=== PATIENT | female | born 1950 | race Caucasian/White ===

== ENCOUNTER 2017-02-03 08:52 | Day surgery (SDC) | payer MEDICARE ==
[2017-02-02 12:32] VITALS: BMI 33.7
[2017-02-03] MEDS ORDERED: diphenhydrAMINE HCl 25 MG CAP ONE (09:40)
[2017-02-03] MEDS ORDERED: Diazepam 5 MG TAB ONE (09:40)
[2017-02-03] MEDS ORDERED: Heparin 10,000 UNITS/1 ML VIAL ONE (10:27)
[2017-02-03] MEDS ORDERED: Nitroglycerin 100MG/250ML BOT 250 ML ONE (10:27)
== END 2017-02-03 14:12 | disposition home or self-care (01) ==
LOC: CCL 08:52
PROVIDERS: ATTEND Internal Medicine
DX: I25.10 Atherosclerotic heart disease of native coronary artery without angina pectoris (principal); I10 Essential (primary) hypertension; Z79.899 Other long term (current) drug therapy
CPT/HCPCS: 93458; 93798; C1769; J1644

== ENCOUNTER 2017-07-05 15:44 | Inpatient (IN) | payer MEDICARE ==
[2017-07-05 16:22] LABS: #Eosinphils 0.1 thou/uL (0.0-0.7); #Lymphocytes 1.2 thou/uL (1.20-3.40); #Monocytes 0.9 thou/uL (0.11-0.59); %Basophils 0.2 % (0.0-1.0); %Eosinophils 0.6 % (0.0-10.0); %Lymphocytes 8.1 % (21.0-51.0); %Monocytes 5.9 % (0.0-10.0); %Neutrophils 85.2 % (42.0-75.0); Hemoglobin 13.9 g/dL (12.0-16.0); Mean Corpuscular HGB CONC 31.8 g/dL (32.0-36.0); Mean Corpuscular Hemoglobin 28.2 pg (27.0-31.0); Mean Corpuscular Volume 88.7 fl (81.0-99.0); Mean Platelet Volume 6.2 fL (7.4-10.4); Platelet Count 560 thou/uL (130-400); Red Blood Cell (RBC) Count 4.93 mill/uL (4.20-5.40); White Blood Cell (WBC) Count 15.3 thou/uL (4.8-10.8)
[2017-07-05 16:49] LABS: ALT (SGPT) 252 U/L (8-55); AST (SGOT) 190 U/L (5-34); Alkaline Phosphatase 884 U/L (40-150); Anion Gap 16 mmol/L (10-20); BUN (Urea Nitrogen) 15 mg/dL (9.8-20.1); Bilirubin, Total 3.1 mg/dL (0.2-1.2); Calc. Creatinine Clearance 0 mL/min (70-130); Calcium 10.9 mg/dL (7.8-10.44); Carbon Dioxide 29 mmol/L (23-31); Chloride 93 mmol/L (98-107); Estimated GFR-MDRD 55; Globulin 3.9 g/dL (2.4-3.5); Glucose 87 mg/dL (80-115); Lipase 20 U/L (8-78); Potassium 3.6 mmol/L (3.5-5.1); Protein, Total 7.9 g/dL (6.0-8.3); Sodium 134 mmol/L (136-145)
--- NOTE | 2017-07-05 16:51 | ULT ---
ULTRASOUND GALLBLADDER RIGHT UPPER QUADRANT 07/05/17 HISTORY: Pain. COMPARISON: Gallbladder ultrasound from 2006. FINDINGS: Visualized portions of the pancreas are unremarkable. There is intrahepatic and extrahepatic biliary dilatation. Portal vein is patent. Antegrade flow. Right kidney measures 10.5 x 4.5 x 4.8 cm without mass, hydronephrosis or abnormal calcifications. Co mmon bile duct measures 1.3 cm. There is extensive wall thickening of the gallbladder measuring 1 cm. There is extensive cholelithias is and possibly even soft tissue mass-like debris within the gallbladder. Positive sonographic Ambrose 's sign. IMPRESSION: 1. Dilated gallbladder with extensive debris and cholelithiasis. There is also what appears to b e some possibly some hypervascular tissue within the gallbladder lumen, although may be artifactual. Underlying mass cannot be excluded. 2. Extensive intrahepatic and extrahepatic biliary dilatation. 3. Surgical consultation recommended. Findings are suggestive of an acute cholecystitis along wi th distal obstructive process, chronic. The CT from 2017 demonstrates intrahepatic and extrahepatic b iliary dilatation also. POS: [facility]
[2017-07-05] MEDS ORDERED: Piperacillin/Tazobactam 4.5 GM in Sodium Chloride 0.9% 100 ML IVPB ONE (17:15)
[2017-07-05 18:10] LABS: Bilirubin Large (Negative); Blood, Urine Negative (Negative); Clarity CLEAR (Clear); Glucose, Urine (Dipstick) Negative (Negative); Leukocyte Small (Negative); Nitrite Negative (Negative); Protein, Urine (Dipstick) Negative (Neg-Trace); Specific Gravity, Urine 1.017 (1.002-1.036)
[2017-07-05 18:12] LABS: Bacteria/HPF None Seen HPF (None Seen); Hyaline Casts/LPF 4-6 HYALINE CAST LPF (0-3 Hyaline); Pathc Cast-AUWi Flag 1.62 (0-2.49); WBC/HPF 0-3 HPF (0-3)
[2017-07-05] MEDS ORDERED: Ondansetron HCl/PF 4 MG/2 ML Vial IVP PRN (18:14)
[2017-07-05] MEDS ORDERED: Morphine 5 MG/ML SYRINGE SLOW IVP PRN (18:14)
[2017-07-05] MEDS ORDERED: Ondansetron ODT 4 MG TAB SL PRN (18:14)
[2017-07-05] MEDS: Sodium Chloride 0.9% 1,000 ML IV SCH (18:18)
[2017-07-05 18:22] VITALS: BMI 31.4
[2017-07-05] MEDS ORDERED: Acetaminophen 650 MG/20.3 ML UDCUP PO PRN (21:21)
--- NOTE | 2017-07-05 21:52 | CON ---
DATE OF CONSULTATION: 07/05/2017 CHIEF COMPLAINT: Abdominal pain. HISTORY OF PRESENT ILLNESS: Ms. Mejia is a 67-year-old woman who first had an onset of epigastric to right upper quadrant pain in 02/2017. The pain started in the afternoon and went through the nig ht, so she went to the emergency room the next morning. She had a CT scan performed that showed dila tion of the bile ducts along with elevated liver test. She states that the doctor advised her to be transferred to [place] by ambulance for surgical evaluation; however, she did not wish to do that at that time, so she went home. She saw her primary care physician the next week and was started on Protonix and her pain resolved completely. She had no further pain up until 4 days ago she developed again a burning to severe dull aching pain in the epigastric region to the right upper quadrant that radiates around towards her back. This pain has been continuous for the last 4 days and it worsens with eating. She has not eaten much in the last 2 days, because she is scared to make the pain worse . She has had dry heaves, but no vomiting. She saw Dr. Mccain in the office today and was advised to go onto the emergency room for further care. Ultrasound was performed today that showed again dilat ion of the common bile duct to 1.3 cm. The intra and extrahepatic duct dilation was noted. There wa s thickening of the gallbladder wall to 1 cm with extensive cholelithiasis. The question of a soft t issue mass within the gallbladder was raised. She has had no fever; however, her white blood cell co unt is noted to be elevated. Her liver tests again are elevated this time. Her bilirubin is increas ed while this was normal back in February. She had a small bowel movement this morning. She has had no diarrhea, constipation or blood in the stool. She does report an 8 pound weight loss over the las t 3 weeks; however, again her pain only started 4 days ago. PAST MEDICAL HISTORY: Hypertension. She underwent cardiac catheterization for an abnormal stress te st in January. No obstructive coronary artery disease was noted. 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 LV function was normal. She is on inhalers and did smoke a pack per day for 40 years. est x-ray in 11/2016 did not show any acute pulmonary abnormality. 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 PAST SURGICAL HISTORY: Positive for hip replacement. FAMILY HISTORY: Negative for GI malignancy. SOCIAL HISTORY: She smoked a pack per day for 40 years, but quit around 2012 or 2013. No alcohol, n o drugs. ALLERGIES: No known drug allergies. MEDICATIONS AT HOME: Lisinopril with hydrochlorothiazide, DuoNeb. She has ibuprofen on her home med icine list, but did not mention that to me. She did state that she takes the tramadol and gabapentin around 3 times per week. She takes diltiazem and furosemide. REVIEW OF SYSTEMS: Negative x10 systems reviewed except as stated in history of present illness. LABORATORY DATA: Creatinine 1.01. Bilirubin 3.1, AST 190, ALT 252, alkaline phosphatase 884, albumi n 4.0, lipase 20. White blood cell count 15.3, hemoglobin 13.9, platelets 560. IMPRESSION: Possible choledocholithiasis with abrupt onset of epigastric to right upper quadrant anahy n 4 days ago and elevated liver tests including the bilirubin with dilation of the bile ducts to 1.3 cm. She also has evidence of cholecystitis with right upper quadrant tenderness and gallbladder wall thickening to 1 cm. A question of mass within the gallbladder was raised by ultrasound. She did gonzalez ve an episode of pain last February with again dilation of the bile ducts and elevated liver tests at that time; however, pain completely resolved for several months with Prilosec. Malignancy of the orlando e duct or pancreas or gallbladder is possible. RECOMMENDATIONS: 1. Endoscopic retrograde cholangiopancreatography tomorrow. 2. Antibiotics. 3. She will ultimately require cholecystectomy as well.
[2017-07-05] MEDS ORDERED: Piperacillin/Tazobactam 4.5 GM in Sodium Chloride 0.9% 100 ML IVPB SCH (22:00)
[2017-07-05] MEDS: Piperacillin/Tazobactam 3.375 GM in Sodium Chloride 0.9% 100 ML IVPB SCH (23:37)
[2017-07-05] MEDS: Ondansetron HCl/PF 4 MG/2 ML Vial IVP PRN (23:57)
[2017-07-06] MEDS: Sodium Chloride 0.9% 1,000 ML IV SCH ×3 (03:12→18:51)
[2017-07-06] MEDS: Piperacillin/Tazobactam 3.375 GM in Sodium Chloride 0.9% 100 ML IVPB SCH ×4 (05:44→23:43)
[2017-07-06] MEDS: Ondansetron HCl/PF 4 MG/2 ML Vial IVP PRN (05:58)
[2017-07-06] MEDS ORDERED: Ondansetron ODT 4 MG TAB PO PRN (06:44)
[2017-07-06] MEDS ORDERED: Morphine 5 MG/ML SYRINGE SLOW IVP PRN (06:44)
[2017-07-06] MEDS ORDERED: Lidocaine 1% PF 5 ML VIAL ONE (08:00)
[2017-07-06] MEDS ORDERED: Ondansetron HCl/PF 4 MG/2 ML Vial ONE (08:00)
[2017-07-06] MEDS ORDERED: Succinylcholine Chloride 20 MG/ML 10 ml SYRINGE FS ONE (08:00)
[2017-07-06] MEDS ORDERED: Propofol 200 MG/20 ML VIAL ONE (08:00)
[2017-07-06] MEDS ORDERED: Iothalamate Meglumine 60% 50 ML VIAL FS ONE (09:06)
[2017-07-06] MEDS ORDERED: Indomethacin 50 MG SUPP ONE ×2 (09:06)
[2017-07-06] MEDS ORDERED: Midazolam HCl 2 mg/2 ml Vial ONE (09:18)
[2017-07-06] MEDS ORDERED: Fentanyl 100 MCG/2 ML VIAL ONE (09:20)
--- NOTE | 2017-07-06 11:59 | RAD ---
ERCP SEVEN VIEWS: Clinical history: Jaundice. FINDINGS: Catheter placement within the biliary system is demonstrated with subsequent contrast opacification. Contrast opacified common duct with focal filling defect related to inflated air balloon. No addition al obvious focal filling defects of the common duct are seen. There is contrast opacification of the intrahepatic biliary ducts with focal areas of dilatation more notable within the left hepatic lobe. The contrast opacified common duct demonstrates diffuse mild prominence. IMPRESSION: Prominent biliary ductal system including the common duct as well as preferentially the left hepatic lobe biliary radicles. An obvious focal filling defect related to choledocholithiasis is not confirme d. Correlate with intraoperative findings. As necessary, MRCP may prove useful. POS: [facility]
[2017-07-06] MEDS: Morphine 2 MG/ML SYRINGE SLOW IVP PRN ×2 (18:58→21:24)
[2017-07-07] MEDS: Morphine 2 MG/ML SYRINGE SLOW IVP PRN ×2 (01:04→05:38)
[2017-07-07] MEDS: Sodium Chloride 0.9% 1,000 ML IV SCH ×3 (01:11→16:15)
[2017-07-07] MEDS: Piperacillin/Tazobactam 3.375 GM in Sodium Chloride 0.9% 100 ML IVPB SCH ×3 (05:33→17:36)
[2017-07-07] MEDS ORDERED: Bupivacaine/Epinephrine 0.25% 30 ML VIAL ONE (08:39)
[2017-07-07] MEDS ORDERED: Dexamethasone 20 MG/5 ML VIAL ONE (08:56)
[2017-07-07] MEDS ORDERED: Propofol 200 MG/20 ML VIAL ONE (08:56)
[2017-07-07] MEDS ORDERED: Glycopyrrolate 0.2 MG/ML 5 ML SYRINGE ONE (08:56)
[2017-07-07] MEDS ORDERED: Ondansetron HCl/PF 4 MG/2 ML Vial ONE (08:56)
[2017-07-07] MEDS ORDERED: Lidocaine 1% PF 5 ML VIAL ONE (08:56)
[2017-07-07] MEDS ORDERED: Albuterol Sulfate 1.25 MG/3 ML NEB ONE (09:02)
[2017-07-07] MEDS ORDERED: Fentanyl 250 MCG/5 ML VIAL ONE ×2 (09:08→13:42)
[2017-07-07] MEDS ORDERED: HYDROmorphone 0.5 MG/0.5 ML SYRINGE ONE ×2 (11:22→11:27)
[2017-07-07] MEDS ORDERED: Iothalamate Meglumine 60% 50 ML VIAL FS ONE (11:34)
[2017-07-07] MEDS ORDERED: Albumin 5% 500 ML ONE (12:23)
[2017-07-07] MEDS ORDERED: Ondansetron HCl/PF 4 MG/2 ML Vial IVP PRN ×3 (12:56→14:01)
[2017-07-07] MEDS ORDERED: Promethazine HCl 25 MG/ML VIAL SLOW IVP PRN (12:56)
[2017-07-07] MEDS ORDERED: HYDROmorphone 2 MG/ML VIAL SLOW IVP PRN (12:56)
[2017-07-07] MEDS ORDERED: Meperidine HCl/PF 25 MG/ML VIAL SLOW IVP PRN (12:56)
[2017-07-07] MEDS ORDERED: Promethazine HCl 25 MG/ML VIAL IM PRN ×3 (12:56→14:01)
[2017-07-07] MEDS ORDERED: Dextrose 50% Abboject 50 ML SYRINGE SLOW IVP PRN (13:26)
[2017-07-07] MEDS ORDERED: hydrALAZINE 20 MG/ML VIAL SLOW IVP PRN (13:26)
[2017-07-07] MEDS ORDERED: Calcium Carbonate 500 MG ChewTAB PO PRN (13:26)
[2017-07-07] MEDS ORDERED: Dextrose 5% in Water 1,000 ML IV PRN (13:26)
[2017-07-07] MEDS ORDERED: Mag-Al 1200 mg/1200 mg/30 ML UDCUP PO PRN (13:26)
[2017-07-07] MEDS ORDERED: SUGAMMADEX SODIUM 200 MG/2 ML VIAL ONE (13:32)
--- NOTE | 2017-07-07 13:44 | RAD ---
INTRAOPERATIVE CHOLANGIOGRAM FLUOROSCOPY: HISTORY: Cholelithiasis. FINDINGS: Intraoperative fluoroscopy is provided for cholangiogram as performed by Dr. Mccain. Spot fluoroscopi c image shows contrast opacification of a distended hepatic biliary system. The common duct is not w ell opacified. No contrast is seen within the duodenum. POS: [facility]
[2017-07-07] MEDS ORDERED: Naloxone HCl 0.4 mg/ml Vial IV PRN (14:01)
[2017-07-07] MEDS ORDERED: diphenhydrAMINE 50 MG/ML VIAL IM PRN (14:01)
[2017-07-07] MEDS ORDERED: Zolpidem Tartrate 5 MG TAB PO PRN (14:01)
[2017-07-07] MEDS ORDERED: diphenhydrAMINE 25 MG CAP PO PRN (14:01)
[2017-07-07] MEDS ORDERED: Fentanyl 5000 MCG/250 ML CADD IVPB PRN (14:01)
[2017-07-07] MEDS ORDERED: diphenhydrAMINE 50 MG/ML VIAL IVP PRN (14:01)
[2017-07-07] MEDS ORDERED: Communication Order-Pharmacy FS SCH (14:15)
[2017-07-07] MEDS: D5 1/2 NS w/20 mEq KCL 1,000 ML IV SCH ×2 (16:15→19:05)
[2017-07-07] MEDS: Ketorolac Tromethamine 30 MG/ML VIAL IVP SCH (17:36)
--- NOTE | 2017-07-07 18:08 | OP ---
PREOPERATIVE DIAGNOSIS: Acute cholecystitis with choledocholithiasis. SURGEON: Surya Mccain M.D. PROCEDURES PERFORMED: Laparoscopic cholecystectomy, exploratory laparotomy with cholangiogram, Mia- en-Y hepaticojejunostomy and liver biopsy. INDICATIONS: This is a 67-year-old female who had undergone endoscopic retrograde cholangiopancreato graphy yesterday with choledocholithiasis, who was also noted to have a thickened gallbladder wall, m ultiple stones on ultrasound findings. She was also continued to have pain and tachycardia. FINDINGS: Massively enlarged gallbladder, thickened gallbladder wall, very thick bile, multiple smal l stones. There was no cystic duct. The gallbladder was directly on the common duct. She had multi ple white nodules throughout both lobes of the liver; one of these was removed for pathology. PROCEDURE IN DETAIL: After informed consent was obtained, the patient was taken to the operating vick m and given general endotracheal anesthesia. She was placed in the supine position. Her abdomen was prepped and draped in the usual fashion. Local anesthesia infiltrated subcutaneously and deep. A s ubumbilical incision was performed. The subcu divided sharply. The fascia grasped and two stay sutu res of 0 Vicryl placed to either side of midline. Midline incised. Digital palpation revealed no lo gema adhesions. A blunt 10/12 mm trocar inserted. Pneumoperitoneum was created to a pressure of 15 m mHg. A 0 degree laparoscope inserted under direct vision. Three 5 mm ports placed subcostally. The gallbladder was encased in omentum. This omentum was taken off the gallbladder. It was very large. An aspirating needle was inserted and 140 mL of bile removed from the gallbladder. The gallbladder was then grasped and advanced superiorly. The peritoneum was lysed distally. I could expose the cy stic artery, which was triply ligated with Hemoclips and divided, but the duct was not evident, so el ected to take the gallbladder dome down. The peritoneum was scored with the cautery and using blunt dissection as well as electrocautery. A slow process of removing this large gallbladder from the [facility] bed was performed. Eventually, got it down to what appeared to be just a dilated cystic duct, b ut it was too large to put a clip on, so this dilated cystic duct was divided sharply and attempts we re made at closing it with an Endoloop, but there was not anything to grasp with the Endoloop, so I w ent ahead and closed it with a 2-0 silk suture tied intracorporeally. Then, wound up placing the gal lbladder in an Endosac and removed it from the abdomen in the Endosac through the umbilical incision. It filled the entire Endosac. I had to enlarge the opening on the fascia in order to get it out to send to pathology. We also sent some of the bile for culture. Hemostasis was then achieved utilizi ng electrocautery and the bed was inspected and I noticed there was bile coming out from where I had attempted to close that where I amputated the gallbladder. I did not feel comfortable with this sit uation, so I elected to open and did a subcostal incision. A right subcostal incision performed. Th e subcu divided sharply with electrocautery. The anterior fascia was divided. The rectus muscle div ided utilizing electrocautery. Posterior rectus sheath was then grasped and opened sharply and then further extended with electrocautery. The falciform ligament was divided between clamps and tied wit h 2-0 silk suture. Now, retraction was achieved utilizing a Bookwalter retractor. We inspected this area where the gallbladder was removed from what I thought was a very dilated common or cystic duct. It turned out to be a pretty defect in the common duct, more than half the diameter. I did not fee l comfortable just putting a T-tube in because I was not sure about its blood supply. It was very di lated over a centimeter once the full extent of it was exposed, so I elected to perform a Mia-en-Y h epaticojejunostomy, but before that I wanted to go ahead inserting a cholangiocatheter into the littl e opening that was leaking. This was an Arrow cholangiocatheter and inflated the balloon and did an intraoperative cholangiogram. This showed both right and left hepatic ducts were patent, but there w as no flow distally to confirm that this was the common bile duct, so I elected to do a Mia-en-Y hep aticojejunostomy. The ligament of Treitz was found and 50 cm of small bowel was measured off and the small bowel was divided utilizing a linear 60 mm white load stapler. Then, 70 cm of small bowel was measured off and a [id number] functional end-to-end anastomosis was performed. The bowel was scor ed on either side, opened with a hemostat and again a 60 mm white load stapler was used to create a s tyrel-to-side anastomosis. The common enterotomy was then closed with another 60 mm white load stapler transversely. Then, because she was morbidly obese, the omentum was scored to facilitate delivery o f the Mia limb to the right upper quadrant. Then, retraction was achieved again utilizing the Bookw alter retractor. The common duct was divided. The distal end was sutured off with a 4-0 Vicryl sutu re. Then, the proximal end was anastomosed to the Mia limb with interrupted 5-0 Vicryl suture. An enterotomy was performed with electrocautery and further extended with a hemostat. Then, the corner stitches were placed as well as the posterior layer with interrupted 5-0 Vicryl sutures. Then, the a nterior layer was then closed with interrupted 5-0 Vicryl sutures. Hemostasis and bile control was c onfirmed. A drain was placed in the subhepatic space and brought out through the most lateral trocar site on the right upper quadrant. The abdomen was thoroughly irrigated. Irrigation fluid removed. The posterior rectus sheath was closed with a running #1 PDS. The anterior rectus sheath was closed with a running #1 PDS. Subcu irrigated and skin closed with skin ana. Then, the umbilical fasc ia was closed with interrupted 0 PDS. The subcu irrigated. Skin closed with skin ana. Sterile bandage applied. Prior to closure, I did harvest one of these liver nodules and there was like dozen s of and they were all about 3 mm in diameter, so one was excised with a wedge resection and sent to pathology for further analysis.
[2017-07-07 19:23] LABS: #Lymphocytes 0.4 thou/uL (1.20-3.40); #Monocytes 0.7 thou/uL (0.11-0.59); #Neutrophils 17.1 thou/uL (1.40-6.50); %Basophils 0.1 % (0.0-1.0); %Eosinophils 0.2 % (0.0-10.0); %Monocytes 3.8 % (0.0-10.0); %Neutrophils 93.9 % (42.0-75.0); Mean Corpuscular HGB CONC 31.5 g/dL (32.0-36.0); Mean Corpuscular Hemoglobin 28.4 pg (27.0-31.0); Mean Corpuscular Volume 89.9 fl (81.0-99.0); Mean Platelet Volume 6.4 fL (7.4-10.4); Platelet Count 488 thou/uL (130-400); RBC Distribution Width 13.1 % (11.5-14.5); Red Blood Cell (RBC) Count 4.23 mill/uL (4.20-5.40); White Blood Cell (WBC) Count 18.2 thou/uL (4.8-10.8)
--- NOTE | 2017-07-07 20:39 | PRG ---
DATE OF SERVICE: 07/07/2017 SUBJECTIVE: Ms. Mejia is back from her cholecystectomy today, apparently a long surgery, talking to the nurse. Ms. Mejia complains of pain in the right upper abdomen. PHYSICAL EXAMINATION: VITAL SIGNS: Temperature 98, pulse 104, blood pressure is 104/69, T-max 98.4. LUNGS: Clear. HEART: Regular rate and rhythm. ABDOMEN: Tender in the upper abdomen, appropriate postop patient. LABORATORY STUDIES: None since 07/05/2017. ASSESSMENT: 1. Cholecystitis, acute, status post laparoscopic cholecystectomy. Agree with broad spectrum antibi otics, pain management control and IV fluids. She is on Zosyn, which is appropriate. 2. Choledocholithiasis, resolved. D5 normal at 120 an hour. PLAN: I will go ahead and check her CBC this evening and repeat labs as there is operative cholangio gram, which shows nonfilling of the duodenum. In the conclusion of her ERCP yesterday, there was goo d drainage of the biliary tree. We will continue to follow along with you during this hospitalizatio n.
[2017-07-07] MEDS: Famotidine/PF 20 mg/2ml Vial SLOW IVP SCH (21:08)
[2017-07-07] MEDS: Famotidine 20 MG TAB PO SCH (21:17)
--- NOTE | 2017-07-07 21:49 | OP ---
DATE OF PROCEDURE: 07/06/2012 PROCEDURE: ERCP, sphincterotomy. PREPROCEDURE DIAGNOSES: 1. Suspected cholecystitis. 2. Suspected choledocholithiasis. POSTPROCEDURE DIAGNOSES: 1. Normal-appearing ampulla. 2. Cholangiogram showed multiple filling defects in the common bile duct. There was also stone debr is in the lumen of the duodenum, on entering the duodenum. 3. After sphincterotomy, multiple stones were pulled through the common bile duct. Occlusion cholan giogram was completed at the end of the procedure with no further filling defects noted. RECOMMENDATIONS: Proceed to cholecystectomy tomorrow. Continue antibiotics. ANESTHESIA: General endotracheal anesthesia. PROCEDURE IN DETAIL: After the patient was informed of the risks, benefits, possible complications o f endoscopy including perforation, bleeding, reactions to medication, and aspiration, informed consen t was obtained. The patient was brought to the endoscopy suite, where she was sedated in usual fashi on. Once she was comfortable and intubated, she was placed in prone position on the fluoroscopy tabl e. A vehicle and equipment cleaner film was obtained. Side-viewing duodenoscope was then advanced through the esophagus, st omach, and second and third portion of duodenum, and the ampulla was brought into view. There was st one debris noted coming from the ampulla. There was no pus. Free cannulation was obtained and a wir e was advanced up into the intrahepatic ducts. Cholangiogram was performed showing filling defect. Sphincterotomy was performed and exchange was made for a 15-mm balloon. The duct was swept multiple times and many stones and debris were brought through the ampulla. Occlusion cholangiogram was perfo rmed showing good filling of the intrahepatic ducts bilaterally and no further filling defects of the common bile duct. Duct was swept one more time and the bile duct was filled one more time and the b alloon was let down and the splints removed. There was spontaneous drainage of contrast, both endosc opically and radiographically. Scope was removed. The patient tolerated the procedure well with no complications.
[2017-07-08] MEDS: Ketorolac Tromethamine 30 MG/ML VIAL IVP SCH ×5 (01:28→23:42)
[2017-07-08] MEDS: Sodium Chloride 0.9% 1,000 ML IV SCH ×4 (01:29→20:40)
[2017-07-08] MEDS: Piperacillin/Tazobactam 3.375 GM in Sodium Chloride 0.9% 100 ML IVPB SCH ×5 (01:29→23:41)
[2017-07-08] MEDS: D5 1/2 NS w/20 mEq KCL 1,000 ML IV SCH ×3 (03:21→23:41)
[2017-07-08 06:15] LABS: Band 6 % (5-11); Lymphocytes 8 % (21-51); MDiff Complete? YES; Mean Corpuscular HGB CONC 31.3 g/dL (32.0-36.0); Mean Corpuscular Hemoglobin 28.2 pg (27.0-31.0); Mean Corpuscular Volume 90.3 fl (81.0-99.0); Mean Platelet Volume 6.7 fL (7.4-10.4); Monocytes 6 % (0-10); Neutrophil 80 % (42-75); Platelet Count 552 thou/uL (130-400); RBC Distribution Width 13.1 % (11.5-14.5); Red Blood Cell (RBC) Count 3.91 mill/uL (4.20-5.40); White Blood Cell (WBC) Count 20.9 thou/uL (4.8-10.8)
[2017-07-08 06:22] LABS: ALT (SGPT) 73 U/L (8-55); AST (SGOT) 39 U/L (5-34); Albumin 2.8 g/dL (3.4-4.8); Alkaline Phosphatase 232 U/L (40-150); Anion Gap 11 mmol/L (10-20); BUN (Urea Nitrogen) 12 mg/dL (9.8-20.1); Bilirubin, Direct 0.4 mg/dL (0.1-0.3); Bilirubin, Total 0.6 mg/dL (0.2-1.2); Calc. Creatinine Clearance 92 mL/min (70-130); Calcium 8.8 mg/dL (7.8-10.44); Carbon Dioxide 27 mmol/L (23-31); Chloride 104 mmol/L (98-107); Estimated GFR-MDRD 63; Globulin 2.6 g/dL (2.4-3.5); Glucose 169 mg/dL (80-115); Lipase 4 U/L (8-78); Protein, Total 5.4 g/dL (6.0-8.3); Sodium 138 mmol/L (136-145)
[2017-07-08] MEDS ORDERED: Enoxaparin Sodium 40 MG/0.4 ML SYRINGE SC SCH (09:00)
[2017-07-08] MEDS: Famotidine/PF 20 mg/2ml Vial SLOW IVP SCH ×2 (10:02→20:39)
[2017-07-08] MEDS: Famotidine 20 MG TAB PO SCH ×2 (10:03→20:39)
[2017-07-08] MEDS ORDERED: Sodium Chloride 0.9% 1,000 ML IV SCH (10:15)
[2017-07-08 12:53] LABS: Hemoglobin 10.8 g/dL (12.0-16.0)
--- NOTE | 2017-07-08 19:02 | PRG ---
DATE OF SERVICE: 07/08/2017 SUBJECTIVE: Ms. Mejia feels much better today. She is sitting up in a chair. She states her upp er abdominal discomfort is much better today than yesterday. OBJECTIVE: VITAL SIGNS: Temperature is 97.8, T-max 100.5 more than 24 hours ago now. Blood pressure 78/51, it was 90/60 earlier today. Pulse is 100-108. O2 sat 94%. Patient did receive a fluid bolus earlier t jorge by General Surgery, 1 liter today. GENERAL: She is resting comfortably in bed. HEENT: Oropharynx without lesions. ABDOMEN: Slightly protuberant, but not firm. She has no rebound or guarding. She is much softer to day than yesterday. EXTREMITIES: No clubbing, cyanosis or edema. SKIN: [place]. LABORATORY STUDIES: White count is 20.9 thousand, 80% segs, hemoglobin 11 and platelet count of 552. BUN and creatinine are 12 and 0.89. Bilirubin is 0.6, down from 3.1 on 07/05. AST and ALT are magaly n to 39 and 73 from 190 and 252. Alkaline phosphatase is down to 232 from 884. Lipase is 4. ASSESSMENT: 1. Choledocholithiasis, resolved with endoscopic retrograde cholangiopancreatography 48 hours ago, a ppropriate drop in liver function test. 2. No signs of post-endoscopic retrograde cholangiopancreatography pancreatitis. 3. Status post laparoscopic cholecystectomy with conversion to hepaticojejunostomy secondary to alte red anatomy and degree of inflammation here and some multiple structures in the right upper quadrant per General Surgery report. 4. Hypotension of unclear etiology. She has received both fluid bolus and is going to receive [facility] er. Presently, she has no melena or signs of bleeding. Her hemoglobin is stable this morning. RECOMMENDATIONS: If she continues to be hypotensive, she will be moved to the ICU or telemetry where she will be watched more closely. Serial hemoglobin and hematocrits would need to be followed in [facility] setting as well. We will order another hemoglobin now.
[2017-07-08] MEDS: fentaNYL Citrate/PF 2,000 MCG in Sodium Chloride 0.9% 60 ML IV PRN (19:13)
[2017-07-09] MEDS: Ketorolac Tromethamine 30 MG/ML VIAL IVP SCH ×4 (05:12→23:13)
[2017-07-09] MEDS: Piperacillin/Tazobactam 3.375 GM in Sodium Chloride 0.9% 100 ML IVPB SCH ×4 (05:13→23:13)
[2017-07-09 05:14] LABS: #Lymphocytes 0.9 thou/uL (1.20-3.40); #Monocytes 1.3 thou/uL (0.11-0.59); #Neutrophils 16.8 thou/uL (1.40-6.50); %Basophils 0.1 % (0.0-1.0); %Eosinophils 0.1 % (0.0-10.0); %Lymphocytes 4.7 % (21.0-51.0); %Monocytes 6.9 % (0.0-10.0); %Neutrophils 88.2 % (42.0-75.0); Hemoglobin 9.6 g/dL (12.0-16.0); Mean Corpuscular HGB CONC 31.4 g/dL (32.0-36.0); Mean Corpuscular Hemoglobin 28.3 pg (27.0-31.0); Mean Platelet Volume 6.5 fL (7.4-10.4); Platelet Count 510 thou/uL (130-400); RBC Distribution Width 13.1 % (11.5-14.5); Red Blood Cell (RBC) Count 3.38 mill/uL (4.20-5.40)
[2017-07-09 05:37] LABS: ALT (SGPT) 49 U/L (8-55); AST (SGOT) 23 U/L (5-34); Albumin 2.5 g/dL (3.4-4.8); Alkaline Phosphatase 171 U/L (40-150); Bilirubin, Direct 0.3 mg/dL (0.1-0.3); Bilirubin, Total 0.5 mg/dL (0.2-1.2)
[2017-07-09] MEDS: Sodium Chloride 0.9% 1,000 ML IV SCH ×3 (07:15→22:05)
[2017-07-09] MEDS: Enoxaparin Sodium 40 MG/0.4 ML SYRINGE SC SCH (08:43)
[2017-07-09] MEDS: Famotidine/PF 20 mg/2ml Vial SLOW IVP SCH ×2 (08:44→22:03)
[2017-07-09] MEDS: Famotidine 20 MG TAB PO SCH ×2 (08:45→22:05)
[2017-07-09] MEDS: D5 1/2 NS w/20 mEq KCL 1,000 ML IV SCH ×3 (08:47→23:13)
--- NOTE | 2017-07-09 12:55 | PRG ---
DATE OF SERVICE: 07/09/2017 SUBJECTIVE: Patient is feeling better today, less pain. She denies any nausea or vomiting. PHYSICAL EXAMINATION: VITAL SIGNS: Her temperature is 97.9, pulse 81, blood pressure is 90/56. GENERAL: She looks better. She is awake, alert, no jaundice. LUNGS: Clear. HEART: Regular rate and rhythm. ABDOMEN: Obese and soft. Still pretty tender. Incisions are dry. The drainage is dropped off. He r JARAD drain has gone down to 320 for the last day. She is urinating. LABORATORY DATA: Her white count is down from 20.9 and 19, hemoglobin and hematocrit of 9.6 and 30. Her LFTs are all gone to almost normal except for alkaline phosphatase little elevated at 171. ASSESSMENT: Improved. PLAN: Begin clear liquids.
--- NOTE | 2017-07-09 18:10 | PRG ---
DATE OF SERVICE: 07/09/2017 SUBJECTIVE: Ms. Mejia is feeling better, still some abdominal pain, but her blood pressure stabil ized overnight. PHYSICAL EXAMINATION: VITAL SIGNS: 105/67, 58 pulse is improved as well as in the 80s, 82 presently, temperature is 97. J P drain was 640 yesterday and 320 today. GENERAL: She is alert and oriented. LUNGS: Clear. HEART: Regular rate and rhythm. ABDOMEN: Still fairly tender. LABORATORY DATA: White count 19,000, hemoglobin 9.6, platelet count 510, 80% segs. Liver tests toda y, bilirubin was 0.5, AST and ALT are 23 and 49, alkaline phosphatase is 171. ASSESSMENT: 1. , resolved. 2. Acute cholecystitis, resolved. 3. Status post hepaticojejunostomy for altered inflamed anatomy at time of laparoscopic cholecystect yu. 4. Hypotension and tachycardia resolved, likely related to dehydration and she is improved with flui ds. She has not shown any signs of bleeding. Hemoglobin relatively stable, slight drop related to f luid resuscitation yesterday. RECOMMENDATIONS: At this time, we will follow from a distance. If I can be of any further assist in the patient's care from GI standpoint please do not hesitate to reconsult.
[2017-07-10] MEDS: Ketorolac Tromethamine 30 MG/ML VIAL IVP SCH ×3 (05:17→17:43)
[2017-07-10] MEDS: Piperacillin/Tazobactam 3.375 GM in Sodium Chloride 0.9% 100 ML IVPB SCH ×3 (05:18→17:44)
[2017-07-10] MEDS: Sodium Chloride 0.9% 1,000 ML IV SCH ×3 (05:27→21:30)
[2017-07-10 07:51] LABS: #Eosinphils 0.1 thou/uL (0.0-0.7); #Lymphocytes 0.9 thou/uL (1.20-3.40); #Monocytes 1.2 thou/uL (0.11-0.59); %Eosinophils 0.9 % (0.0-10.0); %Lymphocytes 5.5 % (21.0-51.0); %Monocytes 7.3 % (0.0-10.0); %Neutrophils 86.4 % (42.0-75.0); Hemoglobin 9.6 g/dL (12.0-16.0); Mean Corpuscular HGB CONC 31.3 g/dL (32.0-36.0); Mean Corpuscular Hemoglobin 28.4 pg (27.0-31.0); Mean Corpuscular Volume 90.7 fl (81.0-99.0); Mean Platelet Volume 6.6 fL (7.4-10.4); Platelet Count 491 thou/uL (130-400); RBC Distribution Width 13.3 % (11.5-14.5); Red Blood Cell (RBC) Count 3.37 mill/uL (4.20-5.40); White Blood Cell (WBC) Count 16.2 thou/uL (4.8-10.8)
[2017-07-10 08:10] LABS: ALT (SGPT) 41 U/L (8-55); AST (SGOT) 18 U/L (5-34); Albumin 2.8 g/dL (3.4-4.8); Alkaline Phosphatase 166 U/L (40-150); Anion Gap 11 mmol/L (10-20); BUN (Urea Nitrogen) 13 mg/dL (9.8-20.1); Bilirubin, Direct 0.5 mg/dL (0.1-0.3); Bilirubin, Total 0.7 mg/dL (0.2-1.2); Calc. Creatinine Clearance 99 mL/min (70-130); Calcium 8.8 mg/dL (7.8-10.44); Carbon Dioxide 24 mmol/L (23-31); Chloride 107 mmol/L (98-107); Estimated GFR-MDRD 69; Glucose 113 mg/dL (80-115); Potassium 4.2 mmol/L (3.5-5.1); Protein, Total 5.7 g/dL (6.0-8.3); Sodium 138 mmol/L (136-145)
[2017-07-10] MEDS: D5 1/2 NS w/20 mEq KCL 1,000 ML IV SCH ×2 (09:21→17:09)
[2017-07-10] MEDS: Enoxaparin Sodium 40 MG/0.4 ML SYRINGE SC SCH (09:40)
[2017-07-10] MEDS: Famotidine 20 MG TAB PO SCH ×2 (09:40→21:28)
[2017-07-10] MEDS: Famotidine/PF 20 mg/2ml Vial SLOW IVP SCH ×2 (09:41→20:53)
[2017-07-10] MEDS ORDERED: Clopidogrel Bisulfate 75 MG TAB ONE (12:08)
--- NOTE | 2017-07-10 16:23 | NM ---
HIDA SCAN: CLINICAL HISTORY: Status post cholecystectomy with Mia-en-Y hepatojejunostomy. Postprocedural nuclear medicine imagin g evaluation. History of bile leak. FINDINGS: There is homogeneous uptake of radiotracer throughout the hepatic parenchyma. Scintigraphic activity is seen at the site of patient's indwelling drain. With delayed imaging at 90 minutes, and 2 hours there is faint activity seen within regional bowel of the upper abdomen. The patient is status post cholecystectomy. IMPRESSION: 1. Scintigraphic activity is seen within bowel at 90 minutes to 2 hours of delayed imaging. 2. Status post cholecystectomy. There is scintigraphic activity seen at the site of biliary drain. Otherwise, no evidence of a biliary leak is demonstrated. POS: [facility]
[2017-07-10] MEDS: fentaNYL Citrate/PF 2,000 MCG in Sodium Chloride 0.9% 60 ML IV PRN (17:41)
[2017-07-11] MEDS: Piperacillin/Tazobactam 3.375 GM in Sodium Chloride 0.9% 100 ML IVPB SCH ×3 (00:45→12:17)
[2017-07-11] MEDS: Ketorolac Tromethamine 30 MG/ML VIAL IVP SCH ×3 (00:45→12:17)
[2017-07-11] MEDS: D5 1/2 NS w/20 mEq KCL 1,000 ML IV SCH ×2 (01:26→09:00)
[2017-07-11 06:01] LABS: #Eosinphils 0.2 thou/uL (0.0-0.7); #Lymphocytes 1.1 thou/uL (1.20-3.40); #Monocytes 1.2 thou/uL (0.11-0.59); #Neutrophils 11.3 thou/uL (1.40-6.50); %Basophils 0.1 % (0.0-1.0); %Eosinophils 1.7 % (0.0-10.0); %Lymphocytes 7.7 % (21.0-51.0); %Monocytes 8.8 % (0.0-10.0); %Neutrophils 81.7 % (42.0-75.0); Hemoglobin 9.5 g/dL (12.0-16.0); Mean Corpuscular HGB CONC 31.2 g/dL (32.0-36.0); Mean Corpuscular Hemoglobin 28.8 pg (27.0-31.0); Mean Corpuscular Volume 92.2 fl (81.0-99.0); Platelet Count 504 thou/uL (130-400); RBC Distribution Width 13.5 % (11.5-14.5); White Blood Cell (WBC) Count 13.9 thou/uL (4.8-10.8)
[2017-07-11] MEDS: Sodium Chloride 0.9% 1,000 ML IV SCH (06:05)
[2017-07-11 06:07] LABS: ALT (SGPT) 34 U/L (8-55); AST (SGOT) 17 U/L (5-34); Albumin 2.9 g/dL (3.4-4.8); Alkaline Phosphatase 166 U/L (40-150); Anion Gap 11 mmol/L (10-20); BUN (Urea Nitrogen) 10 mg/dL (9.8-20.1); Bilirubin, Direct 0.6 mg/dL (0.1-0.3); Bilirubin, Total 0.8 mg/dL (0.2-1.2); Calc. Creatinine Clearance 107 mL/min (70-130); Carbon Dioxide 21 mmol/L (23-31); Chloride 109 mmol/L (98-107); Estimated GFR-MDRD 75; Glucose 93 mg/dL (80-115); Potassium 4.3 mmol/L (3.5-5.1); Protein, Total 5.9 g/dL (6.0-8.3); Sodium 137 mmol/L (136-145)
[2017-07-11] MEDS: Enoxaparin Sodium 40 MG/0.4 ML SYRINGE SC SCH (08:21)
[2017-07-11] MEDS: Famotidine 20 MG TAB PO SCH (08:21)
[2017-07-11] MEDS: Famotidine/PF 20 mg/2ml Vial SLOW IVP SCH (08:23)
--- NOTE | 2017-07-11 13:58 | DIS ---
DISCHARGE DIAGNOSES: 1. Acute cholecystitis. 2. Choledocholithiasis. 3. Mirizzi's syndrome. PROCEDURES DURING ADMISSION: Right upper quadrant ultrasound, ERCP, sphincterotomy and stone extract ion, laparoscopic cholecystectomy converted to open cholecystectomy with Mia-en-Y hepaticojejunostom y jejunostomy, intraoperative cholangiogram, and postoperative HIDA scan. HOSPITAL COURSE: Patient was admitted. She was given IV fluids, IV antibiotics. Ultrasound showed a dilated ductal system with multiple gallstones. She underwent an ERCP and was found to have a comm on duct stone that was extracted and sphincterotomy performed. The following day, she underwent lapa roscopic cholecystectomy and it is very complicated. She had Mirizzi's syndrome with no cystic duct. She had necrosis all the way down to the common duct. She wanted to have conversion to open cholec ystectomy, intraoperative cholangiogram, and Mia-en-Y hepaticojejunostomy. Postoperatively, she was treated with IV fluids and IV antibiotics. She eventually got better. She did have quite a bit of JARAD output. HIDA scan showed flow into the gut. On the following day, she is much better. She feels great. She is tolerating full liquids. Pain is controlled on p.o. meds. She is discharged home on hydrocodone and Zofran. She will follow up with me in 5 days for staple removal. She is going to m easure her JARAD output twice a day.
[2017-07-11 14:24] VITALS: BP 126/76; TEMP 97.9
== END 2017-07-11 14:22 | disposition home or self-care (01) | DRG 410 ==
LOC: ERS 15:44 → SURG B 17:51
PROVIDERS: ADMIT Surgery; ATTEND Surgery
PROC: 0FC98ZZ Extirpation of Matter from Common Bile Duct, Via Natural or Artificial Opening Endoscopic (ICD-10-PCS; 2017-07-06)
PROC: 0F170ZB Bypass Common Hepatic Duct to Small Intestine, Open Approach (ICD-10-PCS; principal; 2017-07-07)
PROC: 0FT44ZZ Resection of Gallbladder, Percutaneous Endoscopic Approach (ICD-10-PCS; 2017-07-07)
PROC: 0FB00ZX Excision of Liver, Open Approach, Diagnostic (ICD-10-PCS; 2017-07-07)
PROC: BF10YZZ Fluoroscopy of Bile Ducts using Other Contrast (ICD-10-PCS; 2017-07-07)
DX: K80.63 Calculus of gallbladder and bile duct with acute cholecystitis with obstruction (principal); E66.01 Morbid (severe) obesity due to excess calories; E86.0 Dehydration; I10 Essential (primary) hypertension; K76.9 Liver disease, unspecified; Z68.31 Body mass index [BMI] 31.0-31.9, adult; Z79.899 Other long term (current) drug therapy; Z87.891 Personal history of nicotine dependence; Z96.641 Presence of right artificial hip joint
CPT/HCPCS: 36415; 47532; 74330; 76705; 78226; 80048; 80053; 80076; 81003; 81015; 83690; 85025; 87070; 87077; 87186; 87205; 88304; 88307; 88313; 96374; A4216; A9537; J1100; J1170; J1650; J1885; J2001; J2250; J2270; J2405; J2543; J2704; J3010; J7050; J7620; P9045; Q9961; S0028

== ENCOUNTER 2017-07-17 10:07 | Inpatient (IN) | payer MEDICARE ==
[2017-07-17 11:03] LABS: #Basophils 0.1 thou/uL (0.0-0.2); #Eosinphils 0.3 thou/uL (0.0-0.7); #Lymphocytes 1.6 thou/uL (1.20-3.40); #Monocytes 1.1 thou/uL (0.11-0.59); #Neutrophils 11.1 thou/uL (1.40-6.50); %Basophils 0.5 % (0.0-1.0); %Eosinophils 2.4 % (0.0-10.0); %Lymphocytes 11.1 % (21.0-51.0); Hemoglobin 11.5 g/dL (12.0-16.0); Mean Corpuscular HGB CONC 31.3 g/dL (32.0-36.0); Mean Corpuscular Hemoglobin 28.1 pg (27.0-31.0); Mean Corpuscular Volume 89.9 fl (81.0-99.0); Mean Platelet Volume 6.5 fL (7.4-10.4); Platelet Count 817 thou/uL (130-400); RBC Distribution Width 13.6 % (11.5-14.5); Red Blood Cell (RBC) Count 4.09 mill/uL (4.20-5.40); White Blood Cell (WBC) Count 14.2 thou/uL (4.8-10.8)
[2017-07-17 11:20] LABS: ALT (SGPT) 18 U/L (8-55); AST (SGOT) 18 U/L (5-34); Albumin 3.3 g/dL (3.4-4.8); Alkaline Phosphatase 167 U/L (40-150); Anion Gap 11 mmol/L (10-20); BUN (Urea Nitrogen) 11 mg/dL (9.8-20.1); Bilirubin, Total 0.5 mg/dL (0.2-1.2); Calc. Creatinine Clearance 0 mL/min (70-130); Calcium 9.9 mg/dL (7.8-10.44); Carbon Dioxide 31 mmol/L (23-31); Chloride 98 mmol/L (98-107); Estimated GFR-MDRD 52; Globulin 3.4 g/dL (2.4-3.5); Glucose 90 mg/dL (80-115); Potassium 4.2 mmol/L (3.5-5.1); Protein, Total 6.7 g/dL (6.0-8.3); Sodium 136 mmol/L (136-145)
[2017-07-17 12:35] LABS: CK (CPK) 107 U/L (29-168); Lipase 7 U/L (8-78)
[2017-07-17] MEDS ORDERED: Furosemide 40 MG/4 ML VIAL ONE (12:36)
[2017-07-17 12:41] LABS: CKMB 3.9 ng/mL (0-6.6)
[2017-07-17 12:50] LABS: Troponin I 0.516 ng/mL (< 0.028)
[2017-07-17 13:04] LABS: Bilirubin Negative (Negative); Blood, Urine Negative (Negative); Clarity CLEAR (Clear); Glucose, Urine (Dipstick) Negative (Negative); Leukocyte Negative (Negative); Nitrite Negative (Negative); Protein, Urine (Dipstick) Negative (Neg-Trace); Specific Gravity, Urine 1.012 (1.002-1.036)
--- NOTE | 2017-07-17 13:15 | ULT ---
BILATERAL LOWER EXTREMITY VENOUS DOPPLER ULTRASOUND: HISTORY: Bilateral lower extremity pain and edema. Recent gallbladder surgery last week. TECHNIQUE: Mary-scale ultrasound with color-flow and spectral Doppler imaging of the deep venous system of the l ower extremities is performed bilaterally. FINDINGS: There is good flow, compression, and augmentation noted in the common femoral, femoral, deep femoral, popliteal, and greater saphenous veins on either side. IMPRESSION: No evidence of deep venous thrombosis in either lower extremity. POS: [facility]
--- NOTE | 2017-07-17 13:19 | RAD ---
PORTABLE CHEST 1 VIEW: Date: 07/17/17 Time: 1254 hours HISTORY: Nausea and vomiting. FINDINGS: Comparison made with exam of 02/10/17. The heart size is normal. The aorta is tortuous. Chronic changes are again seen in the lung [place]. N o lobar consolidation, pneumothorax, or pleural effusions are identified. IMPRESSION: No acute process. POS: [facility]
[2017-07-17 15:50] LABS: Troponin I 0.535 ng/mL (< 0.028)
[2017-07-17] MEDS ORDERED: HYDROcodone/Acetaminophen 5/325 mg Tablet PO PRN (17:01)
[2017-07-17] MEDS ORDERED: Ondansetron HCl/PF 4 MG/2 ML Vial IVP PRN (17:01)
[2017-07-17] MEDS ORDERED: Mag-Al 1200 mg/1200 mg/30 ML UDCUP PO PRN (17:01)
[2017-07-17] MEDS ORDERED: Bisacodyl 5 MG TAB PO PRN (17:01)
[2017-07-17] MEDS ORDERED: Acetaminophen 325 MG TAB PO PRN (17:01)
[2017-07-17] MEDS ORDERED: Milk Of Magnesia 30 ML UDCUP PO PRN (17:01)
[2017-07-17] MEDS ORDERED: Calcium Carbonate 500 MG ChewTAB PO PRN (17:01)
[2017-07-17] MEDS ORDERED: Senokot 8.6 MG TAB PO PRN (17:01)
--- NOTE | 2017-07-17 17:49 | HP ---
CHIEF COMPLAINT: Lower extremity swelling x1 week. HISTORY OF PRESENT ILLNESS: This is a 67-year-old female with a past medical history significant for prolonged treatment for laparoscopic cholecystectomy approximately 1 week ago with choledocholithias is, who presents to the hospital due to lower extremity swelling for the past [address] ates that actually when she was admitted approximately a week and half ago or so, she had a prolonged stay due to the laparoscopic cholecystectomy. At that time, she states that probably towards the en d of her hospital stay, she noticed that she was having lower extremity swelling. She states that th e lower extremity swelling continued to progress throughout the week. Because the swelling did not i mprove, she decided to come to the hospital for evaluation and management. Of note, the patient stat es that she had recently seen a chha approximately 6 months ago and had a "full" workup done and apparently as per her everything checked out to be fine. She states that she was put on Lasix p. r.n. as needed for weight gain. She states that she took a dose of that during its week span, but di d not get any significant relief, which is why she came in as well. She denies any shortness of shirin th, palpitations, chest pain, dizziness, nausea, vomiting, or recent travels. Also, of note, the pat ient states that she has been on a liquid diet for the past week and a half or so. She states that t jorge, her surgeon stated that she could be placed on a regular diet. Also of note, the patient had a cardiac catheterization that was done for an abnormal stress test in January, which showed no sign ificant obstructive coronary artery disease. PAST MEDICAL HISTORY: Includes hypertension. PAST SURGICAL HISTORY: Includes hip replacement. FAMILY HISTORY: Reviewed and noncontributory at this time. SOCIAL HISTORY: Former smoker, stopped around the year of 2012 and 2013. Denies any recreational dr ug use or alcohol abuse. REVIEW OF SYSTEMS: A 14-point review of systems was reviewed and was negative other than what was me ntioned in the HPI. DRUG ALLERGIES: No known drug allergies. HOME MEDICATIONS: Still trying to be retrieved at this time. PHYSICAL EXAMINATION: VITAL SIGNS: Blood pressure was 88/65, MAP of 66, pulse of 88, temperature of 98.4. The patient was 94% oxygen on room air with respiratory rate of 16. GENERAL: Patient was resting comfortably in the bed, alert, awake, and oriented x3. HEENT: Normocephalic, atraumatic. Eyes: Pupils are round and reactive to light. Extraocular muscl es were intact. Conjunctivae pink. Sclerae were nonicteric. Mouth: Oral mucosa is pink and moist. No erythematous was noted. NECK: Soft and supple. No JVD, carotid bruits or lymphadenopathy. CARDIOVASCULAR: Regular rate and rhythm. S1, S2 sounds are heard. No murmurs could be appreciated. RESPIRATORY: Clear to auscultation bilaterally. No added sounds. ABDOMEN: Positive bowel sounds, soft, nontender. Allison to be appreciated on the right side of the abdomen, clean. No signs of infectious process. LOWER EXTREMITIES: Pulses were 2+ both dorsalis and radial pulse, 2+ pitting edema could be apprecia rio bilaterally in her lower extremities. LABORATORY DATA: White blood cell count was 14.2, hemoglobin 11.5, hematocrit was 36.8, platelet cou nt was 817. Sodium 136, potassium 4.2, chloride is 98, bicarbonate is 31, BUN was 11, creatinine was 1.05. Glucose was 90. Troponin was 0.516 then 0.535. BNP was 1205. Chest x-ray did not show any acute cardiopulmonary process and Dopplers of the lower extremities did not show any DVTs. ASSESSMENT AND PLAN: 1. Non-ST elevation myocardial infarction. 2. Lower extremity swelling. 3. Recent laparoscopic cholecystectomy. 4. Hypertension. Due to the patient's low blood pressure, although the map is above 65, we will monitor the patient in IMCU. She does state that her blood pressure does run low; however, she does not know the exact robert ues. The patient has already been given a dose of Lasix while in the ER. We will hold off on giving her any more Lasix today and we will hold off on giving her any Lasix until seen by Cardiology and c oncern for drop in her blood pressure even more. Because the patient is not short of breath and is n ot having any cardiopulmonary issues at this point, Lasix can be held further seen by her cardiologis t. With that being said, we will consult Cardiology. Her chha, Dr. Wood Mary at [facility] apparently does not come to the hospital; therefore, we will consult our chha who was cash reconciliation specialist with Dr. Alonzo. We will follow with recommendations accordingly. Two sets of troponins have already been elevated. We will check one more. It is unclear that if these elevated troponins due t o the congestive heart failure type picture versus true NSTEMI. However, we will start the patient o n aspirin as well as Lipitor. We will hold off on any blood pressure medications. We will get an ec hocardiogram and try to retrieve reports from her chha, imaging, tests that were done in the office approximately 6 months ago. We will monitor I's and O's. Monitor creatinine. We will resume home medication at the medicine reconciliation. Her surgeon also who did the laparoscopic cholecyst ectomy with allison has also already been notified as well. We will place the patient on DVT prophyl axis with Lovenox 40 mg subcu daily.
[2017-07-17 18:10] VITALS: BMI 31.4
[2017-07-17] MEDS: Atorvastatin Calcium 40 MG TAB PO SCH (21:24)
[2017-07-18 03:55] LABS: #Eosinphils 0.3 thou/uL (0.0-0.7); #Lymphocytes 1.7 thou/uL (1.20-3.40); #Monocytes 1.1 thou/uL (0.11-0.59); #Neutrophils 8.9 thou/uL (1.40-6.50); %Basophils 0.4 % (0.0-1.0); %Eosinophils 2.1 % (0.0-10.0); %Lymphocytes 14.4 % (21.0-51.0); %Monocytes 9.3 % (0.0-10.0); %Neutrophils 73.9 % (42.0-75.0); Mean Corpuscular HGB CONC 32.4 g/dL (32.0-36.0); Mean Corpuscular Hemoglobin 28.2 pg (27.0-31.0); Mean Platelet Volume 6.5 fL (7.4-10.4); Platelet Count 686 thou/uL (130-400); RBC Distribution Width 13.6 % (11.5-14.5); Red Blood Cell (RBC) Count 3.54 mill/uL (4.20-5.40); White Blood Cell (WBC) Count 12.1 thou/uL (4.8-10.8)
[2017-07-18 04:08] LABS: Anion Gap 11 mmol/L (10-20); BUN (Urea Nitrogen) 15 mg/dL (9.8-20.1); Calc. Creatinine Clearance 72 mL/min (70-130); Carbon Dioxide 33 mmol/L (23-31); Chloride 96 mmol/L (98-107); Estimated GFR-MDRD 48; Glucose 92 mg/dL (80-115); Potassium 3.5 mmol/L (3.5-5.1); Sodium 136 mmol/L (136-145)
[2017-07-18] MEDS: Enoxaparin Sodium 40 MG/0.4 ML SYRINGE SC SCH (08:53)
[2017-07-18] MEDS ORDERED: Cosyntropin 250 MCG VIAL SLOW IVP SCH (11:45)
[2017-07-18 12:07] LABS: INR-International Normal Ratio 1.6; Prothrombin Time 19.4 SEC (12.0-14.7)
--- NOTE | 2017-07-18 12:13 | CON ---
DATE OF CONSULTATION: 07/18/2017 SERVICE: Pulmonary Medicine. REASON FOR CONSULTATION: CU patient. HISTORY OF PRESENT ILLNESS: The patient is a very pleasant 67-year-old white female. She recently underwent a fairly extensive operation. She was having some gallbladder issues. Ultimately, she underwent a laparoscopic cholecystectomy followed by an exploratory laparotomy with cholangiogram, Mia- en-Y hepaticojejunostomy, and liver biopsy. Ultimately, she had a very complicated postop course and it took over 2 weeks of her being on clear liquid diet and other types of IV fluids. Ultimately, she was discharged from the hospital on the . At that time, she did not have any lower extremity swelling. Over the following 6 days, she had increasing swelling in her legs. Outside of this, she had no fevers, chills, nausea, vomiting, or chest discomfort. Her lower extremity edema progressed to the point where she developed bullae. These popped and started draining. She returned to the emergency department where she was discovered to have marginal blood pressures. She ended up getting some Lasix and she responded very nicely to that medication. Her lower extremity swelling has improved a little bit, but her blood pressures remain quite marginal. She currently denies any fevers, chills , nausea, vomiting, or chest discomfort. She is otherwise returning to her usual state of health. She is not having any dizziness, lightheadedness, or presyncope type symptoms. PAST MEDICAL HISTORY: Hypertension. PAST SURGICAL HISTORY: 1. Hip replacement surgery. 2. Laparoscopic cholecystectomy with subsequent exploratory laparotomy and a significant rearrangement of the small bowel. FAMILY HISTORY: Noncontributory. SOCIAL HISTORY: She previously smoked. She quit in 2013, but prior to that, had a [id number] history of smoking. She denies any alcohol or illicit drug use. She has no exposure to chemicals, dust asbestos or tuberculosis. ALLERGIES: No known drug allergies. MEDICATIONS: List of her inpatient medications was reviewed. No specific updates were made at this time. REVIEW OF SYSTEMS: General, head, ears, eyes, nose, throat, cardiovascular, respiratory, GI, , musculoskeletal, neurologic and skin is negative except as mentioned in the HPI. PHYSICAL EXAMINATION: VITAL SIGNS: Afebrile, pulse 88, blood pressure 83/40, respirations 18, saturation 95% on 2 liters nasal cannula. GENERAL: The patient is awake and alert, in no apparent distress. LUNGS: Decent air entry. There are some crackles present. Decreased air entry at the right base. HEART: Normal rate, regular. ABDOMEN: Soft, nontender, nondistended. Bowel sounds are positive. MUSCULOSKELETAL: No cyanosis or clubbing. No pitting in the bilateral lower extremities. NEUROLOGIC: Grossly nonfocal. LABORATORY DATA: WBC 12.1 and down trending compared to prior hospital stay. Hemoglobin is 10.0, platelets 686,000. Creatinine is 1.13, slightly above baseline of 0.8. Bicarbonate is 33 and gently up trending. Basic metabolic profile is otherwise unremarkable. Troponin is 0.55, BNP 1200. CK is 107, lipase 7. Liver function studies are essentially unremarkable except for a marginally elevated alkaline phosphatase. Lactate was unremarkable. Albumin is 3.3, total protein falls within the normal limits. Urinalysis is unremarkable. Body fluid culture was previously growing Klebsiella that was pansensitive. Blood cultures x2 were unremarkable. IMAGIN. Ultrasound of the bilateral lower extremities demonstrates no evidence of DVT. 2. Chest x-ray demonstrates blunting of the bilateral diaphragm. There is some B lines present. A little cephalization is also identified. Outside of this mild volume overload, there is no acute cardiopulmonary abnormality identified. Trachea is midline. The carinal angle is sharp. ASSESSMENT: 1. Non-ST elevation myocardial infarction. 2. Anasarca. 3. Hypotension, following diuresis. 4. Recent laparoscopic cholecystectomy, requiring an open exploratory procedure and rearrangement of the small bowel. PLAN: Agree with Cardiology consultation. We will check the patient's TSH in the morning, and also her cosyntropin stimulation test. Since we are moving in the right direction, hold off on Lasix for the day and let her reaccumulate some of that fluid back into her intravascular space. Pulmonary Critical Care will continue to follow. I think it is best that we leave her in the IMCU for the time being because of her marginal blood pressures that she is tolerating just fine. Currently, the patient has no signs of infection. We will continue to monitor for these things moving forward. 70 minutes have been devoted to this patient in various activities. I personally reviewed all imaging studies and laboratory data noted within this document. For fifty percent of this time, I was interacting with the patient at the bedside or coordinating care with the care team. For the remainder of the time I was immediately available to the patient in the hospital unit. COLEEN
--- NOTE | 2017-07-18 14:27 | CON ---
DATE OF CONSULTATION: 07/18/2017 REASON FOR CONSULTATION: Elevated troponins. HISTORY OF PRESENT ILLNESS: Ms. Mejia is a very pleasant 67-year-old white female, who comes to [facility] for lower extremity swelling. She had a recent hospitalization, very complex abdominal s urgery. She had gallbladder issues and underwent laparoscopic cholecystectomy, which ended up requir ing a laparotomy and cholangiogram, Mia-en-Y hepaticojejunostomy, and liver biopsies. Her postop co urse was complicated and took about 2 weeks for her to get back home. She was discharged. Her legs were not swelling; however, they started swelling a day after she left the hospital. They got to the point where she had a bullae developed, which popped and started draining. Secondary to this, she c gianni back to the emergency department when it was discovered that her blood pressures were in the 80s/ 40s, so she was admitted to the [facility] for further evaluation. During her initial evaluation, troponin s were drawn and so Cardiology is being consulted, as they were elevated. PAST MEDICAL HISTORY: Hypertension, mild coronary artery disease and a heart catheterization done in 01/2017. PAST SURGICAL HISTORY: 1. Hip replacement. 2. Laparoscopic cholecystectomy with subsequent exploratory laparotomy and Mia-en-Y hepaticojejunos nadia. FAMILY HISTORY: Noncontributory. SOCIAL HISTORY: A former smoker, quit in 2013, [id number] smoking history before that. No alcohol or drug use. ALLERGIES: No known drug allergies. OUTPATIENT MEDICATIONS: 1. Zofran p.r.n. 2. Combivent. 3. Ibuprofen. 4. Furosemide p.o. daily. 5. Tums p.r.n. 6. Tramadol p.r.n. for pain. 7. Lisinopril/hydrochlorothiazide 20/25 mg a day. 8. Gabapentin. 9. Diltiazem 120 mg at bedtime. REVIEW OF SYSTEMS: A 12-point review of systems was done and is all negative unless stated in the hi story of present illness. PHYSICAL EXAMINATION: VITAL SIGNS: Temperature 98.1, pulse 85, respiratory rate 18, satting 90% on 2 liters nasal cannula, blood pressure 82/43. GENERAL: Awake, alert, oriented x3, in no distress. HEENT: Normocephalic. NECK: Supple. LUNGS: Clear. CARDIOVASCULAR: S1 and S2, no S3 or S4, no murmurs, no rubs, no gallops. ABDOMEN: Soft, positive bowel sounds. EXTREMITIES: A 3+ edema, ruptured bullae. LABORATORY WORK: Reviewed. Sodium and potassium were normal. Chloride 96, carbon dioxide of 33, cr eatinine is 1.13, CK-MB was normal with a normal CK, but troponin was 0.5, 0.5, 0.5, and a BNP was 12 05. Lipase was 7. UA was clear. Coags were normal. Hematology was unremarkable except for hemoglo bin 11, down to 10; white count was 14, down to 12. Echocardiogram was reviewed from earlier today. LV function is normal; however, RV seems to be a lit tle dilated with the reduced function concerning for PE and this is acute versus chronic RV failure; this is from COPD. ASSESSMENT AND PLAN: 1. Bilateral lower extremity edema. 2. Vef-AN-wotprux elevation myocardial infarction: Likely demand ischemia. She had an unremarkable heart catheterization in January of last year and her troponin elevation is consistent with demand ischemia in the sense that it is not increase and decrease pattern, but more than just mild constant leak. Echocardiogram would support. We will check for pulmonary embolism. She did not have deep v ein thromboses, concern of pulmonary embolism with a prolonged hospital stay, and hypotension and low er extremity swelling. 3. Hypertension: Resolved. Thank you for letting us participate in the care of your patient. We will follow.
--- NOTE | 2017-07-18 15:13 | CT ---
CT ARTERIOGRAM CHEST WITH IV CONTRAST AND 3D MIP IMAGING: History Chest pain. Leg swelling. Preop. COMPARISON: 02/10/17. FINDINGS: Mild atelectasis and scarring are present at the lung bases. There is good contrast opacification of the pulmonary arteries and thoracic aorta with normal branching of the great vessels. Arterial calc ifications apparent. No enlarged lymph nodes within the mediastinum. Within the partially visualized upper abdomen, the gallbladder is now surgically absent. Small linea r subcapsular fluid collection is present along the posterolateral aspect of the right liver lobe, li cezar related to recent surgery. AT the level of the right adrenal gland, a poorly defined mass-like area is now 3.5 cm greatest diameter. A much smaller lesion was present at the right adrenal gland o n the previous study. The appearance is more suggestive of hemorrhage/hematoma than an enlarging adr enal gland mass. IMPRESSION: 1. No CT evidence of pulmonary embolus. 2. Atherosclerosis. 3. Postoperative changes right upper quadrant. 4. The enlargement of the right adrenal gland, as detailed above, is favored to be related to hemato ma/hemorrhage rather than a neoplastic process. Please consider CT adrenal glands, 3-phase protocol, in 6 months to evaluate for resolution. POS: KAN
[2017-07-18] MEDS ORDERED: ISOVUE-370 76%-LOCM 1 ML ONE (16:20)
--- NOTE | 2017-07-18 18:55 | PDOC.PN ---
- Subjective Encounter Start Date: 07/18/17 Encounter Start Time: 18:55 Subjective: nsg notes rev, keo ovn, no new c/o, denies any SOB, CP, leg pain - Objective Resuscitation Status: Resuscitation Status FULL:Full Resuscitation Vital Signs & Weight: Vital Signs (12 hours) Temp Pulse Resp BP Pulse Ox 07/18/17 16:00 98.4 F 86 20 97/52 L 96 07/18/17 11:40 98.1 F 85 18 82/43 L 90 L 07/18/17 07:37 98.0 F 78 16 93 L 07/18/17 07:35 98.8 F 88 18 83/40 L 95 Weight Weight 207 lb I&O: 07/17/17 07/18/17 07/19/17 06:59 06:59 06:59 Intake Total 360 900 Output Total 150 650 Balance 210 250 Result Diagrams: 07/18/17 03:09 07/19/17 08:22 Phys Exam - Physical Examination Constitutional: NAD HEENT: PERRLA, moist MMs, sclera anicteric Respiratory: no wheezing, no rales, no rhonchi, clear to auscultation bilateral Cardiovascular: RRR, no significant murmur, no rub Gastrointestinal: soft, positive bowel sounds Musculoskeletal: pulses present 2-3+ b/l pitting pedal edema Neurological: moves all 4 limbs Psychiatric: normal affect, A&O x 3 Dx/Plan - Plan * b/l LE edema * cautious lasix, none today 2/2 relative hypotension * elevation * r/o PE elev trop * concern for NSTEMI * hemodynamically stable * continue to trend and monitor hypotension * asymptomatic * monitor s/p ex lap raya * ? JARAD drain removal * stable post op R adrenal enlargement * incidental finding * monitor * f/u imaging post d/c potential for chronic pulmonary issues - will need o/p pulmonary f/u diet: as sylwia activity: as sylwia dvt ppx Review of Systems - Medications/Allergies Allergies/Adverse Reactions: Allergies Allergy/AdvReac Type Severity Reaction Status Date / Time No Known Allergies Allergy Verified 07/06/17 06:42 Medications: Current Medications Acetaminophen (Tylenol) 650 mg PO Q6H PRN PRN Reason: Headache/Fever or Pain Hydrocodone Bitart/Acetaminophen ([place] 5/325) 1 tab PO Q6H PRN PRN Reason: Moderate Pain (4-6) Al Hydroxide/Mg Hydroxide (Maalox) 30 ml PO Q6H PRN PRN Reason: Heartburn or Indigestion Last Admin: 07/17/17 21:24 Dose: 30 ml Aspirin (Aspirin Chewable) 81 mg PO DAILY [facility] Last Admin: 07/18/17 08:53 Dose: 81 mg Atorvastatin Calcium (Lipitor) 40 mg PO HS [facility] Last Admin: 07/17/17 21:24 Dose: 40 mg Bisacodyl (Dulcolax) 10 mg PO DAILYPRN PRN PRN Reason: Constipation Calcium Carbonate (Tums) 1,000 mg PO Q4H PRN PRN Reason: Heartburn or Indigestion Cosyntropin (Cortrosyn) 250 mcg SLOW IVP WILLCALL [facility] Enoxaparin Sodium (Lovenox) 40 mg SC 0900 [facility] Last Admin: 07/18/17 08:53 Dose: 40 mg Magnesium Hydroxide (Milk Of Magnesium) 30 ml PO DAILYPRN PRN PRN Reason: Constipation Ondansetron HCl (Zofran) 4 mg IVP Q6H PRN PRN Reason: Nausea/Vomiting Senna (Senokot) 2 tab PO HSPRN PRN PRN Reason: Constipation
[2017-07-18] MEDS: Atorvastatin Calcium 40 MG TAB PO SCH (20:55)
--- NOTE | 2017-07-19 06:47 | PRG ---
DATE OF SERVICE: 07/19/2017 SERVICE: Pulmonary Medicine. INTERVAL HISTORY: The patient is doing fine from a respiratory standpoint. She denies any chest anahy n, fevers, chills, nausea or vomiting. She did not sleep very well last night because she could not get comfortable in the bed or in the bedside chair. That being said, it is because of chronic lower back discomfort. She has a foam mattress at home and is missing that structure. Otherwise, there gonzalez s been no interval change in her condition. She remains without nausea, vomiting, diarrhea, chest pa in, lightheadedness, or dizziness. PHYSICAL EXAMINATION: VITAL SIGNS: Afebrile with a T-max of 100.0, pulse 87, blood pressure 77/47, respirations 16, satura tion 94% on room air. GENERAL: The patient is awake and alert, in no apparent distress. LUNGS: Excellent air entry. There is no prolonged expiratory phase, wheezing, rhonchi or crackles. HEART: Normal rate, regular. ABDOMEN: Soft, nontender, nondistended. Bowel sounds are positive. MUSCULOSKELETAL: No cyanosis or clubbing. There is 2+ to 3+ pitting in the bilateral lower extremit ies. NEUROLOGIC: Grossly nonfocal. LABORATORY DATA: WBC 12.1, hemoglobin 10.0, platelets 686,000 and dropping. INR 1.6. Creatinine 1. 13. Blood cultures x2 are unremarkable. IMAGING: CT of the chest demonstrates minimal pleural effusion. There are some chronic changes incl uding paraseptal emphysema present. There is a pleural based nodularity which I favored to represent a little atelectasis in the posterior segment of the right lung. ASSESSMENT: 1. Non-ST elevation myocardial infarction. 2. Anasarca. 3. Hypotension. 4. Recent laparoscopic cholecystectomy, requiring an open exploratory procedure and rearrangement of the small bowel. 5. Acute on chronic diastolic heart failure. 6. Dilated right ventricle with reduced right ventricle function without mention of pulmonary hypert ension. PLAN: The patient is doing really quite well. Based on her laboratories this morning, we will decid e whether or not to provide her with additional dose of Lasix as she remains a little bit volume over loaded. The right ventricle will need to be reassessed in the outpatient setting. We can consider s leep study. That being said, she does not seem to have any dyspnea that limits her activity that wou ld be suggestive of progressive pulmonary hypertension. She does have some paraseptal emphysema and does not have a known diagnosis of COPD. This can also be evaluated in the outpatient setting. From my perspective, she can be considered for transition to the telemetry unit, though her marginal bloo d pressures may give pause for concern on the floor, even though she is tolerating it without difficu lty, so far as we can tell. I will continue to follow. She will certainly require a followup in the pulmonary clinic in the outpatient setting.
[2017-07-19 08:43] LABS: Anion Gap 12 mmol/L (10-20); BUN (Urea Nitrogen) 12 mg/dL (9.8-20.1); Calc. Creatinine Clearance 81 mL/min (70-130); Calcium 9.6 mg/dL (7.8-10.44); Carbon Dioxide 31 mmol/L (23-31); Chloride 97 mmol/L (98-107); Estimated GFR-MDRD 55; Glucose 104 mg/dL (80-115); Magnesium 1.9 mg/dL (1.6-2.6); Phosphorus 2.4 mg/dL (2.3-4.7); Sodium 136 mmol/L (136-145)
[2017-07-19] MEDS: Enoxaparin Sodium 40 MG/0.4 ML SYRINGE SC SCH (08:43)
[2017-07-19] MEDS ORDERED: Furosemide 40 MG/4 ML VIAL SLOW IVP SCH (11:30)
[2017-07-19] MEDS: Furosemide 40 MG/4 ML VIAL SLOW IVP SCH (14:59)
--- NOTE | 2017-07-19 15:27 | PDOC.CTH ---
Cardiology Progress Note - Subjective She is doing better. Her CT did not have any evidence of PE. She feels better overall. - Objective Vital Signs Temp Pulse Resp BP Pulse Ox 07/19/17 12:07 98.7 F 92 20 105/62 94 L 07/19/17 08:00 98.2 F 78 18 93/57 L 90 L 07/19/17 04:00 98.9 F 86 16 89/53 L 95 Weight 206 lb 07/18/17 07/19/17 07/20/17 06:59 06:59 06:59 Intake Total 360 1500 840 Output Total 150 1700 500 Balance 210 -200 340 - Physical Examination General/Neuro: alert & oriented x3, NAD Neck: no JVD present Lungs: unlabored respirations Heart: RRR Abdomen: NT/ND Extremities: + edema B (3+) - Telemetry Telemetry Rhythm: NSR - Labs Result Diagrams: 07/18/17 03:09 07/19/17 08:22 Troponin/CKMB CK-MB (CK-2) 3.9 ng/mL (0-6.6) 07/17/17 10:47 Troponin I 0.550 ng/mL (< 0.028) H* 07/17/17 18:01 - Assessment/Plan 1. LE edema. 2. RV dilatation and mild systolic dysfunction 3. COPD 4. Recent abdominal surgery and prolongued hospital stay. 5. NSTEMI, likely demand ischemia. Asymptomatic. PLAN: - Will try to continue to diurese - Normal LV function. - Will follow.
--- NOTE | 2017-07-19 20:09 | PDOC.PN ---
- Subjective Encounter Start Date: 07/19/17 Encounter Start Time: 20:09 Subjective: nsg notes rev, keo ovn, no new c/o - Objective Resuscitation Status: Resuscitation Status FULL:Full Resuscitation Vital Signs & Weight: Vital Signs (12 hours) Temp Pulse Resp BP Pulse Ox 07/19/17 19:27 100.1 F H 92 18 93/64 92 L 07/19/17 16:41 98.3 F 98 18 93/64 92 L 07/19/17 12:07 98.7 F 92 20 105/62 94 L Weight Weight 206 lb I&O: 07/18/17 07/19/17 07/20/17 06:59 06:59 06:59 Intake Total 360 1500 1320 Output Total 150 1700 2600 Balance 210 -200 -1280 Result Diagrams: 07/18/17 03:09 07/20/17 03:50 Phys Exam - Physical Examination Constitutional: NAD HEENT: PERRLA, moist MMs, sclera anicteric Respiratory: no wheezing, no rales Cardiovascular: RRR, no significant murmur, no rub Gastrointestinal: soft, positive bowel sounds Musculoskeletal: pulses present 2+ b/l LE edema Neurological: moves all 4 limbs Psychiatric: normal affect, A&O x 3 Dx/Plan - Plan * b/l LE edema * cautious lasix, * elevation * neg for PE elev trop * concern for NSTEMI * hemodynamically stable * continue to trend and monitor * apprec card c/s hypotension * asymptomatic * monitor * apprec pulm cc c/s s/p ex lap raya * ? JARAD drain removal * stable post op R adrenal enlargement * incidental finding * monitor * f/u imaging post d/c potential for chronic pulmonary issues - will need o/p pulmonary f/u diet: as sylwia activity: as sylwia dvt ppx Review of Systems - Review of Systems Eyes: Vision Change - Medications/Allergies Allergies/Adverse Reactions: Allergies Allergy/AdvReac Type Severity Reaction Status Date / Time No Known Allergies Allergy Verified 07/06/17 06:42 Medications: Current Medications Acetaminophen (Tylenol) 650 mg PO Q6H PRN PRN Reason: Headache/Fever or Pain Hydrocodone Bitart/Acetaminophen (Mcintosh 5/325) 1 tab PO Q6H PRN PRN Reason: Moderate Pain (4-6) Al Hydroxide/Mg Hydroxide (Maalox) 30 ml PO Q6H PRN PRN Reason: Heartburn or Indigestion Last Admin: 07/17/17 21:24 Dose: 30 ml Aspirin (Aspirin Chewable) 81 mg PO DAILY [facility] Last Admin: 07/19/17 08:44 Dose: 81 mg Atorvastatin Calcium (Lipitor) 40 mg PO HS [facility] Last Admin: 07/19/17 20:47 Dose: 40 mg Bisacodyl (Dulcolax) 10 mg PO DAILYPRN PRN PRN Reason: Constipation Calcium Carbonate (Tums) 1,000 mg PO Q4H PRN PRN Reason: Heartburn or Indigestion Cosyntropin (Cortrosyn) 250 mcg SLOW IVP WILLCALL [facility] Last Admin: 07/19/17 08:43 Dose: 250 mcg Enoxaparin Sodium (Lovenox) 40 mg SC 0900 [facility] Last Admin: 07/19/17 08:43 Dose: 40 mg Furosemide (Lasix) 40 mg SLOW IVP 0600,1400 [facility] Last Admin: 07/20/17 06:18 Dose: 40 mg Magnesium Hydroxide (Milk Of Magnesium) 30 ml PO DAILYPRN PRN PRN Reason: Constipation Ondansetron HCl (Zofran) 4 mg IVP Q6H PRN PRN Reason: Nausea/Vomiting Senna (Senokot) 2 tab PO HSPRN PRN PRN Reason: Constipation Sodium Chloride (Flush - Normal Saline) 10 ml IVF Q12HR [facility] Last Admin: 07/19/17 20:48 Dose: 10 ml Sodium Chloride (Flush - Normal Saline) 10 ml IVF PRN PRN PRN Reason: Saline Flush
[2017-07-19] MEDS: Atorvastatin Calcium 40 MG TAB PO SCH (20:47)
[2017-07-20 04:56] LABS: Anion Gap 11 mmol/L (10-20); BUN (Urea Nitrogen) 13 mg/dL (9.8-20.1); Calc. Creatinine Clearance 78 mL/min (70-130); Calcium 9.1 mg/dL (7.8-10.44); Carbon Dioxide 32 mmol/L (23-31); Chloride 96 mmol/L (98-107); Estimated GFR-MDRD 53; Glucose 97 mg/dL (80-115); Magnesium 1.8 mg/dL (1.6-2.6); Phosphorus 2.7 mg/dL (2.3-4.7); Potassium 3.3 mmol/L (3.5-5.1); Sodium 136 mmol/L (136-145)
[2017-07-20] MEDS: Furosemide 40 MG/4 ML VIAL SLOW IVP SCH ×2 (06:18→13:37)
[2017-07-20] MEDS: Enoxaparin Sodium 40 MG/0.4 ML SYRINGE SC SCH (09:34)
[2017-07-20 11:51] VITALS: BP 113/63; TEMP 98.9
[2017-07-20] MEDS ORDERED: Potassium Chloride 20 MEQ TAB PO SCH ×2 (12:45→14:00)
--- NOTE | 2017-07-20 12:53 | PRG ---
DATE OF SERVICE: 07/20/2017 SERVICE: Pulmonary Medicine. INTERVAL HISTORY: The patient is doing fine from a respiratory standpoint. She has no complaints of chest discomfort, fevers, chills, nausea, vomiting or overnight events. Her lower extremity swellin g is much improved. Her blood pressures have firmed up a little bit. PHYSICAL EXAMINATION: VITAL SIGNS: Afebrile with a T-max of 100.1, pulse 82, blood pressure 113/63, respirations 17, satur ation 92% on room air. GENERAL: The patient is awake and alert, no apparent distress. LUNGS: Decent air entry. There is no prolonged expiratory phase. Crackles are present. No wheezin g. HEART: Normal rate, regular. ABDOMEN: Soft, nontender, nondistended. Bowel sounds are positive. MUSCULOSKELETAL: No cyanosis or clubbing. The pitting edema is much improved. It is currently 2+ t hroughout. GENITOURINARY: No Farooq. NEUROLOGIC: Grossly nonfocal. LABORATORY DATA: Potassium 3.3, basic metabolic profile is otherwise unremarkable. Creatinine has i mproved to the 1.04, bicarbonate is stable at 32. Phosphorus and magnesium fall within the normal li mits. TSH was normal. The cortisol response was fantastic. Blood cultures x2 remain unremarkable. ASSESSMENT: 1. Non-ST elevation myocardial infarction. 2. Anasarca, improving. 3. Hypotension, resolving. 4. Recent laparoscopic cholecystectomy, requiring open exploratory procedure and rearrangement of th e small bowel. 5. Acute on chronic diastolic heart failure, resolving. 6. Dilated right ventricle with reduced right ventricular flow without mention of pulmonary hyperten miguel. DISCUSSION AND PLAN: The patient from a respiratory standpoint is stable for transition home. Cardi ology permission is currently pending. Pulmonary will continue to follow while she remains in this l ocation, but from my perspective, she is stable for transition to the Medical Unit. There is a possi bility that the RV dysfunction was simply secondary to overdistention from her anasarca state. Once she is back to euvolemia, we can reassess this in the outpatient setting.
[2017-07-21] MEDS ORDERED: Furosemide 40 MG TAB PO SCH (07:30)
[2017-07-21] MEDS ORDERED: Potassium Chloride 20 MEQ TAB PO SCH (08:00)
--- NOTE | 2017-07-22 12:37 | EKG ---
Test Reason : EXTREMITY SWELLING Blood Pressure : / mmHG Vent. Rate : 077 BPM Atrial Rate : 077 BPM P-R Int : 142 ms QRS Dur : 084 ms QT Int : 422 ms P-R-T Axes : 033 100 116 degrees QTc Int : 477 ms Normal sinus rhythm Rightward axis Low voltage QRS T wave abnormality, consider lateral ischemia Prolonged QT Abnormal ECG Confirmed by ESTEFANIA WILDER, WILMER ([id number]), industrial editor ALBERTO LEONG ([id number]) on 07/22/2017 12:36:13 PM Referred By: Confirmed By:WILMER MAC MD
== END 2017-07-20 14:02 | disposition home or self-care (01) | DRG 280 ==
LOC: ERS 10:07 → IMCU/EMU 15:11
PROVIDERS: ADMIT Internal Medicine; ATTEND Internal Medicine
DX: I21.A1 Myocardial infarction type 2 (principal); I50.33 Acute on chronic diastolic (congestive) heart failure; I95.9 Hypotension, unspecified; E27.8 Other specified disorders of adrenal gland; I11.0 Hypertensive heart disease with heart failure; J43.9 Emphysema, unspecified; Z87.891 Personal history of nicotine dependence
CPT/HCPCS: 36415; 71045; 71275; 80048; 80053; 80400; 81003; 82553; 83605; 83690; 83735; 83880; 84100; 84443; 84484; 85025; 85610; 87040; 93005; 93306; 93798; 93970; 94760; 96374; J0834; J1940